=== PATIENT | female | born 1935 | race African-American/Black ===

== ENCOUNTER → 2016-04-15 | Outpatient (CLI) | payer MEDICARE, BC ==
[~2016-04-15] MED LIST: AMLO10TA2 PO; APIX5TAB PO; BUDE20SU; GABA100C4 PO; HYDR12.57 PO; LORA10TA; PRED1 PO; SOTA80TA PO
[2016-04-15 17:00] LABS: AUTOMATED NEUTROPHIL # 1.8 TH/MM3 (1.8-7.7); BASOPHIL % 1.4 % (0.0-2.0); EOSINOPHIL # 0.2 TH/MM3 (0-0.4); EOSINOPHIL % 6.9 % (0.0-4.0); HEMATOCRIT 41.3 % (35.0-46.0); HEMO FLAGS DIFF FINAL; LYMPHOCYTE # 0.9 TH/MM3 (1.0-4.8); MEAN CORPUSCULAR HGB CONC 32.9 % (32.0-36.0); NEUT % 51.7 % (16.0-70.0); PLATELET COUNT 250 TH/MM3 (150-450); RED BLOOD COUNT 5.24 MIL/MM3 (4.00-5.30); RED CELL DISTRIBUTION WIDTH 13.9 % (11.6-17.2); WHITE BLOOD COUNT 3.4 TH/MM3 (4.0-11.0)
[2016-04-15 17:20] LABS: WESTERGREN SEDIMENTATION RATE 44 mm/hr (0-30)
[2016-04-15 17:21] LABS: MICRO ALBUMIN RANDOM URINE RAW 5.1 MG/L (0.0-30.0)
[2016-04-15 17:27] LABS: ALT (GPT) 24 U/L (10-53); ANION GAP 7 MEQ/L (5-15); AST (GOT) 22 U/L (15-37); BLOOD UREA NITROGEN 19 MG/DL (7-18); CHLORIDE 104 MEQ/L (98-107); GLOMERULAR FILTRATION RATE 59 ML/MIN (>89); POTASSIUM 3.5 MEQ/L (3.5-5.1); SODIUM (NA) 140 MEQ/L (136-145)
[2016-04-15 17:29] LABS: ALKALINE PHOSPHATASE 81 U/L (45-117); TOTAL BILIRUBIN ADULT 0.4 MG/DL (0.2-1.0)
[2016-04-15 18:00] LABS: HEMOGLOBIN A1a 1.2 %; HEMOGLOBIN A1b 1.8 %; HEMOGLOBIN Ao 84.7 %; HEMOGLOBIN LA1C 1.8 %
[2016-04-16 15:10] LABS: ANA SCREEN POS (NEG)
== END ==
LOC: PLAB 11:34
PROVIDERS: ATTEND Allergy & Immunology
DX: R73.09 Other abnormal glucose (principal); I10 Essential (primary) hypertension; M35.3 Polymyalgia rheumatica; Z79.899 Other long term (current) drug therapy; R76.8 Other specified abnormal immunological findings in serum
CPT/HCPCS: 36415; 80053; 82043; 83036; 85025; 85652; 86038; 86039; 86140; 86225

== ENCOUNTER → 2016-09-23 | Outpatient (CLI) | payer MEDICARE, BC ==
[~2016-09-23] MED LIST changes: -LORA10TA
[2016-09-23 13:28] LABS: AUTOMATED NEUTROPHIL # 1.7 TH/MM3 (1.8-7.7); BASOPHIL # 0.1 TH/MM3 (0-0.2); BASOPHIL % 1.5 % (0.0-2.0); EOSINOPHIL # 0.2 TH/MM3 (0-0.4); EOSINOPHIL % 7.2 % (0.0-4.0); HEMATOCRIT 40.6 % (35.0-46.0); HEMO FLAGS DIFF FINAL; LYMPH % 26.7 % (9.0-44.0); LYMPHOCYTE # 0.9 TH/MM3 (1.0-4.8); MEAN CELL VOLUME 78.6 FL (80.0-100.0); MEAN CORPUSCULAR HEMOGLOBIN 25.9 PG (27.0-34.0); MONO % 14.9 % (0.0-8.0); NEUT % 49.7 % (16.0-70.0); PLATELET COUNT 270 TH/MM3 (150-450); RED BLOOD COUNT 5.16 MIL/MM3 (4.00-5.30); WHITE BLOOD COUNT 3.4 TH/MM3 (4.0-11.0)
[2016-09-23 13:42] LABS: ALT (GPT) 25 U/L (10-53); ANION GAP 4 MEQ/L (5-15); AST (GOT) 23 U/L (15-37); BICARBONATE 33.1 MEQ/L (21.0-32.0); BLOOD UREA NITROGEN 20 MG/DL (7-18); CHLORIDE 103 MEQ/L (98-107); GLOMERULAR FILTRATION RATE 80 ML/MIN (>89); POTASSIUM 4.4 MEQ/L (3.5-5.1); SODIUM (NA) 140 MEQ/L (136-145)
[2016-09-23 13:45] LABS: ALKALINE PHOSPHATASE 84 U/L (45-117); TOTAL BILIRUBIN ADULT 0.4 MG/DL (0.2-1.0)
[2016-09-23 13:53] LABS: WESTERGREN SEDIMENTATION RATE 40 mm/hr (0-30)
[2016-09-24 11:02] LABS: ANA SCREEN POS (NEG)
== END ==
LOC: PLAB 10:34
PROVIDERS: ATTEND Allergy & Immunology
DX: R60.9 Edema, unspecified (principal); E78.5 Hyperlipidemia, unspecified; I11.9 Hypertensive heart disease without heart failure; I48.0 Paroxysmal atrial fibrillation; R76.8 Other specified abnormal immunological findings in serum; M35.3 Polymyalgia rheumatica; E04.1 Nontoxic single thyroid nodule; E66.3 Overweight; Z79.899 Other long term (current) drug therapy
CPT/HCPCS: 36415; 80053; 84443; 85025; 85652; 86038; 86039; 86140

== ENCOUNTER 2017-02-23 10:58 | Emergency (ER) | payer MEDICARE, BC ==
[~2017-02-23 10:58] MED LIST changes: +BROMSYP PO; +CLAR10CA3 PO
[2017-02-23 11:13] VITALS: BP 153/70; PULSE 63; RESP 17; TEMP 97.6; O2SAT 97
--- NOTE | 2017-02-23 11:20 | PD ---
HPI Chief Complaint: Musculoskeletal Complaint Time Seen by Provider: 11:10 Travel History International Travel<30 days: No Contact w/Intl Traveler<30days: No Traveled to known affect area: No History of Present Illness HPI 82-year-old female on L a course presents for evaluation of ecchymosis and pain to the right foot. She first noticed it yesterday. She does not recall any specific trauma but she believes that she certainly could have bumped her foot into something. She reports that she is very activeshe does yard work, she bikes and she walks quite a bit. She has no other complaints at this time. PFSH Past Medical History Hx Anticoagulant Therapy: Yes Arthritis: Yes Asthma: Yes Atrial Fibrillation: Yes Heart Rhythm Problems: Yes (A-FIB) Cancer: Yes (RIGHT BREAST -(SX, CHEMO, RADS)) Cardiovascular Problems: Yes (afib) High Cholesterol: Yes Chemotherapy: No Cerebrovascular Accident: No Diabetes: No Diminished Hearing: No Endocrine: Yes (RHEUMATOID ARTHRITIS) Gastrointestinal Disorders: No Genitourinary: No Hepatitis: No Hiatal Hernia: No Hypertension: Yes Immune Disorder: No Musculoskeletal: Yes (RHEUMATOID ARTHRITIS) Neurologic: No Psychiatric: No Reproductive: No Respiratory: No Immunizations Current: Yes Thyroid Disease: No ?: Not Menopausal: Yes Past Surgical History Abdominal Surgery: No AICD: No Body Medical Devices: MARKERS IN L BREAST FOLLOWING BIOPSY Cardiac Surgery: No Ear Surgery: No Endocrine Surgery: No Genitourinary Surgery: No Gynecologic Surgery: No Hysterectomy: No Joint Replacement: No Oral Surgery: Yes (FULL DENTURES) Pacemaker: No Thoracic Surgery: Yes (RIGHT BREAST LUMPECTOMY 1993) Other Surgery: Yes ( RIGHT LUMPECTOMY) Social History Alcohol Use: No Tobacco Use: No Substance Use: No Allergies-Medications (Allergen,Severity, Reaction): Coded Allergies: lisinopril (Verified Allergy, Severe, VOMITING, 02/23/17) losartan (Verified Allergy, Severe, VOMITING, 02/23/17) Influenza Virus Vaccines (Verified Allergy, Intermediate, SEVERE MYALGIAS AFTER RECEIVING, 02/23/17) ciprofloxacin (Verified Allergy, Intermediate, Chills, 02/23/17) Chills , unable to sleep pneumococcal vaccine (Verified Allergy, Intermediate, SEVERE MYALGIAS AFTER RECEIVING, 02/23/17) Reported Meds & Prescriptions Reported Meds & Active Scripts Active Bromfed DM Liq (Toasdsiawqfvhoi-Yqezpgpaqbddnet-[place] Liq) 30-2-10 Mg/5 Ml Syrp 2.5 Ml PO Q6H PRN Claritin (Loratadine) 10 Mg Cap 10 Mg PO DAILY Hydrochlorothiazide 12.5 Mg Cap 12.5 Mg PO DAILY Reported Budesonide Nasal [place] (Budesonide (Nasal)) 32 Mcg/Act Evy Eliquis (Apixaban) 5 Mg Tab 5 Mg PO BID Prednisone 1 Mg Tab 1 Mg PO BID Amlodipine (Amlodipine Besylate) 10 Mg Tab 10 Mg PO DAILY Sotalol (Sotalol HCl) 80 Mg Tab 80 Mg PO BID Review of Systems Except as stated in HPI: all other systems reviewed are Neg Physical Exam Narrative GENERAL: Well-nourished female in no acute distress SKIN: Warm and dry. Ecchymosis dorsal distal right foot. CARDIOVASCULAR: Regular rate and rhythm. No murmur appreciated. RESPIRATORY: No accessory muscle use. Clear to auscultation. Breath sounds equal bilaterally. MUSCULOSKELETAL: Skin as noted above. Focal tenderness to palpation of the distal dorsal right foot. No bony deformity. 2+ dorsalis pedis pulse. Full range of motion right foot. NEUROLOGICAL: Awake and alert. No obvious cranial nerve deficits. Motor grossly within normal limits. Normal speech. Data Data Last Documented VS Vital Signs Date Time Temp Pulse Resp B/P (MAP) Pulse Ox O2 Delivery O2 Flow Rate FiO2 02/23/17 11:13 97.6 63 17 153/70 (97) 97 Orders Orders Foot, Complete ([id number]) (02/23/17 ) Ed Discharge Order (02/23/17 12:49) [facility] Medical Decision Making Medical Screen Exam Complete: Yes Emergency Medical Condition: Yes Medical Record Reviewed: Yes Differential Diagnosis Contusion, ecchymosis, stress fracture Narrative Course X-ray imaging was obtained revealing no acute abnormalities. Stress fracture was considered in differential with the patient has no pain on walking so this is doubtful. Most likely the patient has ecchymosis from a minor injury and she is on anticoagulation. Conservative therapy Recommended. She is stable for discharge. Diagnosis Primary Impression: Ecchymosis Additional Instructions: Ice pack to the affected area a few times a day 15 minutes at a time. Avoid strenuous activity. Med/Other Pt SpecificInfo: No Change to Meds Disposition: 01 DISCHARGE HOME Condition: Stable Reid Olsen Feb 23, 2017 11:20
--- NOTE | 2017-02-23 12:32 | RADRPT ---
EXAM DATE/TIME: 02/23/2017 11:19 [place] COMPARISON: CHEST SINGLE AP, January 14, 2016, 10:54. INDICATIONS : Right lateral foot pain, no known injury. MEDICAL HISTORY : None. SURGICAL HISTORY : None. ENCOUNTER: Initial ACUITY: 3 days PAIN SCORE: 8/10 LOCATION: Right lateral foot FINDINGS: The osseous structures are intact. There is a small spur at the insertion of the plantar fascia. Ther e is no acute fracture or destructive lesion. CONCLUSION: No acute bony abnormality. Man Gautam MD on February 23, 2017 at 11:44 Board Certified Radiologist. This report was verified electronically.
== END 2017-02-23 13:03 | disposition home or self-care (01) ==
LOC: PHED 10:58 → PHEFT 13:03
DX: S90.31XA Contusion of right foot, initial encounter (principal); J45.909 Unspecified asthma, uncomplicated; I48.91 Unspecified atrial fibrillation; E78.00 Pure hypercholesterolemia, unspecified; M06.9 Rheumatoid arthritis, unspecified; I10 Essential (primary) hypertension; Z79.01 Long term (current) use of anticoagulants
CPT/HCPCS: 73630; 99283

== ENCOUNTER → 2017-04-09 | Outpatient (CLI) | payer MEDICARE, BC ==
[~2017-04-09] MED LIST changes: -GABA100C4 PO
[2017-04-09 11:49] LABS: AUTOMATED NEUTROPHIL # 1.6 TH/MM3 (1.8-7.7); BASOPHIL # 0.1 TH/MM3 (0-0.2); BASOPHIL % 1.8 % (0.0-2.0); EOSINOPHIL # 0.4 TH/MM3 (0-0.4); EOSINOPHIL % 12.5 % (0.0-4.0); HEMATOCRIT 39.8 % (35.0-46.0); HEMOGLOBIN 12.9 GM/DL (11.6-15.3); LYMPH % 25.3 % (9.0-44.0); LYMPHOCYTE # 0.8 TH/MM3 (1.0-4.8); MEAN CELL VOLUME 81.4 FL (80.0-100.0); MEAN CORPUSCULAR HEMOGLOBIN 26.4 PG (27.0-34.0); MEAN CORPUSCULAR HGB CONC 32.5 % (32.0-36.0); MEAN PLATELET VOLUME 8.6 FL (7.0-11.0); MONO % 13.4 % (0.0-8.0); MONOCYTE # 0.5 TH/MM3 (0-0.9); PLATELET COUNT 240 TH/MM3 (150-450); RED CELL DISTRIBUTION WIDTH 14.3 % (11.6-17.2); WHITE BLOOD COUNT 3.3 TH/MM3 (4.0-11.0)
[2017-04-09 12:03] LABS: ALBUMIN 3.7 GM/DL (3.4-5.0); AST (GOT) 22 U/L (15-37); BICARBONATE 30.1 MEQ/L (21.0-32.0); BLOOD UREA NITROGEN 18 MG/DL (7-18); CALCIUM 9.1 MG/DL (8.5-10.1); CHLORIDE 102 MEQ/L (98-107); CREATININE 0.76 MG/DL (0.50-1.00); GLOMERULAR FILTRATION RATE 88 ML/MIN (>89); GLUCOSE,FASTING 88 MG/DL (74-99); SODIUM (NA) 140 MEQ/L (136-145)
[2017-04-09 12:05] LABS: ALKALINE PHOSPHATASE 76 U/L (45-117); ALT (GPT) 19 U/L (10-53); C-REACTIVE PROTEIN 1.02 MG/DL (0.00-0.30); CHOLESTEROL 195 MG/DL (120-200); TOTAL BILIRUBIN ADULT 0.4 MG/DL (0.2-1.0); TRIGLYCERIDES 110 MG/DL (42-150)
[2017-04-09 12:08] LABS: RHEUMATOID FACTOR SCREEN NEGATIVE (NEGATIVE)
[2017-04-09 12:10] LABS: CHOLESTEROL/ HDL RATIO 3.48 RATIO; LDL CHOLESTEROL 117 MG/DL (0-99)
[2017-04-09 12:14] LABS: WESTERGREN SEDIMENTATION RATE 27 mm/hr (0-30)
[2017-04-09 16:37] LABS: HEMOGLOBIN A1C 6.2 % (4.3-6.0)
[2017-04-10 16:28] LABS: ANA SCREEN POS (NEG)
[2017-04-15 16:45] LABS: ANA PATTERN DIFFUSE
== END ==
LOC: PLAB 09:32
PROVIDERS: ATTEND Allergy & Immunology
DX: M35.3 Polymyalgia rheumatica (principal); M06.4 Inflammatory polyarthropathy; R70.0 Elevated erythrocyte sedimentation rate; R79.82 Elevated C-reactive protein (CRP); E11.9 Type 2 diabetes mellitus without complications; E78.00 Pure hypercholesterolemia, unspecified
CPT/HCPCS: 80053; 80061; 83036; 85025; 85652; 86038; 86039; 86140; 86200; 86430

== ENCOUNTER → 2017-07-03 | Outpatient (CLI) | payer MEDICARE, BC ==
[2017-07-03 14:30] LABS: BICARBONATE 30.8 MEQ/L (21.0-32.0); CALCIUM 9.4 MG/DL (8.5-10.1); CREATININE 0.93 MG/DL (0.50-1.00)
== END ==
LOC: PLAB 09:15
PROVIDERS: ATTEND Internal Medicine Interventional Cardiology
DX: E78.5 Hyperlipidemia, unspecified (principal); I11.9 Hypertensive heart disease without heart failure
CPT/HCPCS: 36415; 80048

== ENCOUNTER → 2017-10-07 | Outpatient (CLI) | payer MEDICARE, BC ==
[2017-10-07 14:04] LABS: AUTOMATED NEUTROPHIL # 1.8 TH/MM3 (1.8-7.7); EOSINOPHIL # 0.2 TH/MM3 (0-0.4); EOSINOPHIL % 6.8 % (0.0-4.0); HEMATOCRIT 41.9 % (35.0-46.0); HEMOGLOBIN 13.7 GM/DL (11.6-15.3); LYMPHOCYTE # 0.9 TH/MM3 (1.0-4.8); MEAN CELL VOLUME 80.6 FL (80.0-100.0); MEAN CORPUSCULAR HEMOGLOBIN 26.4 PG (27.0-34.0); MEAN CORPUSCULAR HGB CONC 32.8 % (32.0-36.0); MONOCYTE # 0.4 TH/MM3 (0-0.9); NEUT % 53.2 % (16.0-70.0); PLATELET COUNT 252 TH/MM3 (150-450); RED CELL DISTRIBUTION WIDTH 13.9 % (11.6-17.2); WHITE BLOOD COUNT 3.4 TH/MM3 (4.0-11.0)
[2017-10-07 14:47] LABS: WESTERGREN SEDIMENTATION RATE 25 mm/hr (0-30)
[2017-10-07 16:46] LABS: ALBUMIN 3.8 GM/DL (3.4-5.0); BICARBONATE 29.1 MEQ/L (21.0-32.0); BLOOD UREA NITROGEN 17 MG/DL (7-18); CALCIUM 9.2 MG/DL (8.5-10.1); CHLORIDE 105 MEQ/L (98-107); SODIUM (NA) 142 MEQ/L (136-145)
[2017-10-07 16:49] LABS: ALKALINE PHOSPHATASE 73 U/L (45-117); ALT (GPT) 24 U/L (10-53); AST (GOT) 28 U/L (15-37); C-REACTIVE PROTEIN 0.76 MG/DL (0.00-0.30); GLOMERULAR FILTRATION RATE 73 ML/MIN (>89); GLUCOSE,RANDOM 84 MG/DL (74-106); TOTAL BILIRUBIN ADULT 0.3 MG/DL (0.2-1.0); TOTAL PROTEIN 8.1 GM/DL (6.4-8.2)
== END ==
LOC: PLAB 08:57
PROVIDERS: ATTEND Allergy & Immunology
DX: M35.3 Polymyalgia rheumatica (principal)
CPT/HCPCS: 36415; 80053; 85025; 85652; 86140